=== PATIENT | female | born 1970 | race Caucasian/White ===

== ENCOUNTER 2019-02-24 09:17 | Emergency (ER) | payer MEDICAID ==
[~2019-02-24] VITALS: Ht 152.4 cm; Wt 81.2 kg
[2019-02-24 09:22] VITALS: BP 157/94
--- NOTE | 2019-02-24 09:25 | NUR ---
PT AMBULATED TO BED 6, PROVIDED WITH URINE CUP AND PROVIDED INSTRUCTIONS FOR CLEAN CATCH URINE SAMPLE
--- NOTE | 2019-02-24 09:30 | NUR ---
DR FERNANDO AT BEDSIDE EVALUATING PT.
--- NOTE | 2019-02-24 09:40 | NUR ---
PT PRESENTS TO ED C/O VAGINAL DISCOMFORT X1 WEEK. DENIES DYSURIA & FREQUENCY, DENIES N/V/FEVER. STATES SHE HAD UNPROTECTED SEXUAL INTERCOURSE.
--- NOTE | 2019-02-24 09:59 | NUR ---
Pelvic exam performed by Dr Menchaca with EMILY Ho at bedside for entire examination. Patient tolerated procedure well. Patient assisted to position of comfort after examination.
[2019-02-24 10:44] LABS: APPEARANCE,URINE CLEAR (CLEAR); BILIRUBIN,URINE NEGATIVE (NEGATIVE); BLOOD, URINE NEGATIVE (NEGATIVE); COLOR,URINE YELLOW (YELLOW); LEUKOCYTE ESTERASE ,URINE NEGATIVE (NEGATIVE); NITRITE, URINE NEGATIVE (NEGATIVE); PH,URINE 5.5 (5.0-9.0); UGLUCOSE 1+ (NEGATIVE)
[2019-02-24 11:09] LABS: RBC,URINE 0-5 /HPF (0-5)
[2019-02-24 11:10] LABS: CALCIUM OXALATE CRYSTALS,UR 0-10 /HPF (None Seen); WBC,URINE 0-5 /HPF (0-5)
--- NOTE | 2019-02-24 11:26 | NUR ---
DR FERNANDO AT BEDSIDE
[2019-02-24 11:37] VITALS: BP 148/82
--- NOTE | 2019-02-24 11:37 | NUR ---
Patient discharged with v/s stable. Written and verbal after care instructions given and explained. Patient alert, oriented and verbalized understanding of instructions. Ambulatory with steady gait. All questions addressed prior to discharge. ID band removed. Patient advised to follow up with PMD. Rx of Clotrimazole vaginal cream given. Patient educated on indication of medication including possible reaction and side effects. Opportunity to ask questions provided and answered.
[2019-02-26 06:59] LABS: CHLAMYDIA TRACHOMATIS AMP DNA Negative (Negative)
== END 2019-02-24 11:37 | disposition home or self-care (01) ==
LOC: MED 09:17
DX: N76.0 Acute vaginitis (principal); I10 Essential (primary) hypertension; F17.200 Nicotine dependence, unspecified, uncomplicated; Z90.710 Acquired absence of both cervix and uterus
CPT/HCPCS: 36415; 81001; 81025; 87070; 87205; 87210; 87491; 99283